=== PATIENT | female | born 1945 | race Hispanic/Latino ===

== ENCOUNTER → 2018-01-09 | Outpatient (CLI) | payer MEDICARE ==
--- NOTE | 2018-01-09 14:54 | Diagnostic Imaging Report ---
PROCEDURE:X-RAY ABDOMEN - KUB COMPARISON:KUB 03/02/2014 INDICATIONS:CALCULUS OF KIDNEY FINDINGS: There is a non-obstructed bowel-gas pattern. There are no calcifications projected over the renal shadows, expected course of the ureters or bladder. Phleboliths project over the pelvis. Left renal artery calcifications again noted. Cholecystectomy clips. There are no acute osseous abnormalities. Facet arthrosis of the lower lumbar spine. The lung bases are clear. CONCLUSION: No radiographically apparent nephrolithiasis. Dictated by: Kale Gibbs M.D. on 01/09/2018 at 14:55 Electronically approved by: Kale Gbibs M.D. on 01/09/2018 at 14:55
== END ==
LOC: RAD 12:03
PROVIDERS: ATTEND Urology
DX: N20.0 Calculus of kidney (principal)
CPT/HCPCS: 74018

== ENCOUNTER → 2018-10-28 | Outpatient (CLI) | payer MEDICARE ==
--- NOTE | 2018-10-28 15:31 | Diagnostic Imaging Report ---
Exam: Abdominal film Clinical History: Kidney stones Comparison: None. DISCUSSION: The bowel gas pattern shows no dilated, air-filled loops of bowel. No abnormal calcifications project over the renal shadows. Amorphous lucent centered calcification projects over the left hemipelvis which is likely vascular in nature. Regional skeletal structures are intact. No mass effect or organomegaly. Cholecystectomy clips. IMPRESSION: Lucent centered left pelvic calcification is likely vascular in nature. Otherwise no plain film findings to suggest urolithiasis. Signed by: Dr. Rayn Ramirez M.D. on 10/28/2018 3:27 PM
== END ==
LOC: RAD 14:53
PROVIDERS: ATTEND Urology
DX: N20.0 Calculus of kidney (principal)
CPT/HCPCS: 74018

== ENCOUNTER → 2020-03-24 | Outpatient (CLI) | payer MEDICARE ==
--- NOTE | 2020-03-24 09:14 | Diagnostic Imaging Report ---
EXAM: ABDOMEN-1VIEW (KUB) DATE: 03/24/2020 8:40 AM INDICATION: Kidney stones COMPARISON: 10/28/2018 FINDINGS: Bowel gas pattern is nonobstructive. Bowel gas partially appears the renal shadows limiting evaluation. No radiographically evident renal calculi or urinary stones are appreciated. Stable phlebolith noted within the left hemipelvis. Cholecystectomy clips noted within the right upper quadrant. Degenerative changes noted of the lumbosacral spine. No acute osseous abnormality is identified. IMPRESSION: No radiographically evident renal calculi appreciated. Signed by: Dr. Behzad Clark MD on 03/24/2020 9:10 AM
--- NOTE | 2020-03-24 09:21 | Diagnostic Imaging Report ---
EXAM: US RENAL RETROPERITONEAL COMP DATE: 03/24/2020 8:47 AM INDICATION: Calculus of kidney, UTI COMPARISON: None FINDINGS: The right kidney is normal in size measuring 9.6 x 4.4 x 5.2 cm with cortical thickness of 1.3 cm. Cortical echogenicity is within normal limits. There is a 1.0 x 1.3 x 1.2 cm cyst identified within the mid right kidney. There is no evidence for solid renal mass, hydronephrosis, or shadowing calculi. The left kidney is normal in size measuring 9.0 x 5.0 x 4.3 cm with cortical thickness of 1.5 cm. Cortical echogenicity is within normal limits. There is a 1.8 x 1.5 x 1.9 cm cyst identified within the mid left kidney. There is no evidence for solid renal mass, hydronephrosis, or shadowing calculi. The partially distended urinary bladder demonstrates no significant abnormalities. IMPRESSION: Bilateral renal cysts. Otherwise, unremarkable renal ultrasound examination. Signed by: Dr. Behzad Clark MD on 03/24/2020 9:18 AM
== END ==
LOC: US 08:23
PROVIDERS: ATTEND Urology
DX: N20.0 Calculus of kidney (principal); N39.0 Urinary tract infection, site not specified
CPT/HCPCS: 74018; 76770

== ENCOUNTER → 2020-08-20 | Outpatient (CLI) | payer MEDICARE | LOC: US 10:50 | PROVIDERS: ATTEND Urology | DX: R10.84 Generalized abdominal pain (principal) | CPT/HCPCS: 76700 ==

== ENCOUNTER → 2021-03-16 | Outpatient (CLI) | payer MEDICARE | LOC: RAD 11:45 | PROVIDERS: ATTEND Urology | DX: N20.0 Calculus of kidney (principal) | CPT/HCPCS: 74018 ==

== ENCOUNTER → 2022-06-08 | Outpatient (CLI) | payer OTHER | LOC: RAD 13:22 | PROVIDERS: ATTEND Urology | DX: N20.0 Calculus of kidney (principal) | CPT/HCPCS: 74018 ==

== ENCOUNTER → 2022-06-23 | Day surgery (SDC) | payer MEDICARE, OTHER ==
[2022-06-22 11:31] LABS: BASOPHILS # (AUTO) 0.1 (0.0-0.1); BASOPHILS % 1.1 % (0.0-1.0); EOSINOPHILS # (AUTO) 0.3 (0.0-0.4); EOSINOPHILS % 4.5 % (0.0-6.0); HEMATOCRIT 39.9 % (34.2-44.1); HEMOGLOBIN 13.6 g/dL (12.0-16.0); LYMPHOCYTES # (AUTO) 1.6 (1.0-3.2); LYMPHOCYTES % 25.7 % (18.0-39.1); MEAN CORPUSCULAR HEMOGLOBIN 31.5 pg (28-32); MEAN CORPUSCULAR HGB CONC 34.1 g/dL (31-35); MEAN CORPUSCULAR VOLUME 92.4 fL (81-99); MONOCYTES # (AUTO) 0.5 (0.2-0.8); MONOCYTES % 8.2 % (4.4-11.3); NEUTROPHILS # (AUTO) 3.7 (2.1-6.9); NEUTROPHILS % 60.2 % (38.7-80.0); PLATELET COUNT 221 x10e3/uL (140-360); RED BLOOD COUNT 4.32 x10e6/uL (3.6-5.1); RED CELL DISTRIBUTION WIDTH 12.7 % (11.7-14.4)
[2022-06-22 11:48] LABS: ANION GAP 15.1 mmol/L (8-16); CALCIUM 9.5 mg/dL (8.4-10.2); CREATININE, SERUM 0.71 mg/dL (0.57-1.11); POTASSIUM 4.1 mmol/L (3.5-5.1)
[~2022-06-23] MED LIST: B&O 60MG R/S 60 MG SUPP PR ONE; CALCIUM ACETAT667 MG PO; CEFTRIAXONE 1 GM VIAL ONE; CENTRUM ADULTS1 EACH PO; DEXAMETHASONE SOD PHOS INJ 4 MG/ML SDV ONE; FAMOTIDINE 20 MG/2 ML VIAL IV ONE; FENTANYL CITRATE/PF 100MCG/2 ML INJ ONE; GENTAMICIN 80MG/NS 100 ML 200 ML IV ONE; IBANDRONATE SO150 MG PO; IOPAMIDOL 610MG/1ML 300 MG/ML VIAL IV ONE; LIDOCAINE HCL 2% LOCAL INJ 5 ML SDV VIAL INJ ONE; LISINOPRIL-HCT1 EACH PO; METOCLOPRAMIDE HCL 10 MG/2ML VIAL ONE; ONDANSETRON HCL INJ 2MG/ML 2ML 2 MG/ML VIAL ONE; OXYBUTYNIN CHLOR5 MG PO; POTASSIUM CHLO10 ME1 PO; POTASSIUM CITR10 MEQ PO; POVIDONE IODINE 0.05% 0.05 % ML PO ONE; PROPOFOL IV EMULSION 10 MG/ML 20 ML VIAL ONE; SEVOFLURANE INHAL SOLN 250 ML PEN BTL ONE; VENTOLIN HFA18 GM INH
[2022-06-23 16:15] VITALS: BP 147/84
== END | disposition home or self-care (01) ==
LOC: OR 11:37
PROVIDERS: ATTEND Urology
DX: N30.11 Interstitial cystitis (chronic) with hematuria (principal); N81.10 Cystocele, unspecified; N36.41 Hypermobility of urethra; N95.2 Postmenopausal atrophic vaginitis; N81.6 Rectocele; N32.89 Other specified disorders of bladder; G47.33 Obstructive sleep apnea (adult) (pediatric); I10 Essential (primary) hypertension; R00.1 Bradycardia, unspecified; J45.909 Unspecified asthma, uncomplicated; F41.9 Anxiety disorder, unspecified; Z01.810 Encounter for preprocedural cardiovascular examination; Z01.812 Encounter for preprocedural laboratory examination; Z01.818 Encounter for other preprocedural examination; Z79.899 Other long term (current) drug therapy
CPT/HCPCS: 36415; 71046; 74420; 80048; 85025; 87086; 93005; C1758; J0696; J1100; J1580; J2001; J2405; J2765; J3010

== ENCOUNTER → 2022-11-02 | Outpatient (CLI) | payer OTHER ==
[~2022-11-02] MED LIST changes: -B&O 60MG R/S 60 MG SUPP PR ONE; -CEFTRIAXONE 1 GM VIAL ONE; -DEXAMETHASONE SOD PHOS INJ 4 MG/ML SDV ONE; -FAMOTIDINE 20 MG/2 ML VIAL IV ONE; -FENTANYL CITRATE/PF 100MCG/2 ML INJ ONE; -GENTAMICIN 80MG/NS 100 ML 200 ML IV ONE; -IOPAMIDOL 610MG/1ML 300 MG/ML VIAL IV ONE; -LIDOCAINE HCL 2% LOCAL INJ 5 ML SDV VIAL INJ ONE; -METOCLOPRAMIDE HCL 10 MG/2ML VIAL ONE; -ONDANSETRON HCL INJ 2MG/ML 2ML 2 MG/ML VIAL ONE; -POVIDONE IODINE 0.05% 0.05 % ML PO ONE; -PROPOFOL IV EMULSION 10 MG/ML 20 ML VIAL ONE; -SEVOFLURANE INHAL SOLN 250 ML PEN BTL ONE
== END ==
LOC: RAD 11:26
PROVIDERS: ATTEND Urology
DX: N20.0 Calculus of kidney (principal); N13.30 Unspecified hydronephrosis; Z87.442 Personal history of urinary calculi
CPT/HCPCS: 74018